=== PATIENT | female | born 1980 | race Caucasian/White ===

== ENCOUNTER 2017-02-23 13:03 | Emergency (ER) | payer OTHER ==
[~2017-02-23] VITALS: Ht 162.6 cm; Wt 80.7 kg
[~2017-02-23 13:03] MED LIST: ADVIL,NUPRIN,M200 MG PO; DAILY VITE1 EAC1 PO; FLONASE16 G1 BOTH NARES; IMITREX100 MG PO; SUPHEDRINE PE10 MG PO
[2017-02-23 13:43] LABS: HEMATOCRIT 37.1 % (36.0-46.0); MCH 30.2 PG (29.0-34.0); MCHC 34.8 G/DL (30.0-36.0); MCV 86.9 FL (83-99); MEAN PLAT.VOLUME 10.1 uM^3 (9.5-12.4); PLATELET COUNT 302 K/uL (156-360); RBC DIS.WIDTH-CV 12.8 % (11.8-14.6); RBC DIS.WIDTH-SD 40.1 % (39-53); RED BLOOD COUNT 4.27 M/uL (3.80-5.20); WHITE BLOOD COUNT 6.7 K/uL (4.1-10.2)
[2017-02-23 13:56] LABS: CHLORIDE 108 mEq/L (99-109); POTASSIUM 3.7 mEq/L (3.7-5.4); SODIUM 138 mEq/L (136-147)
[2017-02-23 13:57] LABS: GLUCOSE 88 mg/dL (70-99)
[2017-02-23 13:59] LABS: ANION GAP 8 MEQ/L (2-14)
[2017-02-23 14:01] LABS: GFR ESTIMATE (CALCULATED) > 59 mL/min/
[2017-02-23 14:02] LABS: UREA NITROGEN (BUN) 13 mg/dL (9-23)
[2017-02-23 14:04] LABS: TROP-I INTERPRETATION NEGATIVE; TROPONIN-I 0.01 ng/mL (0.0-0.30)
[2017-02-23 14:33] LABS: INTER. NORMALIZED RATIO 1.2; PROTHROMBIN TIME 12.9 SEC (10.2-12.9)
[2017-02-23 14:35] LABS: PTT 25.8 SEC (25-37)
[2017-02-23] MEDS ORDERED: BUSPAR10 MG PO (15:53)
[2017-02-23] MEDS ORDERED: SEROQUEL300 MG PO (15:53)
[2017-02-23 17:03] LABS: TROP-I INTERPRETATION NEGATIVE; TROPONIN-I < 0.01 ng/mL (0.0-0.30)
[2017-02-23 17:38] VITALS: BP 144/79
== END 2017-02-23 17:38 | disposition home or self-care (01) ==
LOC: EME 13:03
PROVIDERS: Emergency Medicine
DX: R07.9 Chest pain, unspecified (principal); F32.9 Major depressive disorder, single episode, unspecified; Z87.891 Personal history of nicotine dependence; Z88.0 Allergy status to penicillin
CPT/HCPCS: 71020; 80048; 83880; 84484; 85027; 85610; 85730; 93005; 99281; 99284